=== PATIENT | female | born 1995 | race Caucasian/White ===

== ENCOUNTER 2020-03-16 10:10 | Emergency (ER) | payer SELFPAY ==
[2020-03-16] MEDS ORDERED: ONDANSETRON HCL INJ/PF 4 MG/2 ML SDV IV ONE (10:47)
[2020-03-16] MEDS ORDERED: MORPHINE SULFATE 10 MG/ML INJ IV ONE ×2 (10:48→13:13)
--- NOTE | 2020-03-16 10:48 | ER Document Report ---
ED GI/ - General Chief Complaint: Abdominal Pain Stated Complaint: LOWER ABDOMINAL PAIN/BACK PAIN Time Seen by Provider: 03/16/20 10:20 Primary Care Provider: TORIN HARKINS MD [Primary Care Provider] - Follow up as needed Notes: CHIEF COMPLAINT: Right pelvic pain for 3 days HPI: 24-year-old female with history of ovarian cyst presenting with 3 days of progressively worsening right pelvic pain. Patient is on her menstrual cycle currently denies vaginal discharge. Has had nausea no vomiting no fever. Patient states it feels similar to prior ovarian cyst but the pain is more severe. She has taken no medications at home for the symptoms. ROS: See HPI - all other systems were reviewed and are otherwise negative Constitutional: no fever or recent illness Eyes: no drainage, no blurred vision ENT: no runny nose, no sore throat Cardiovascular: no chest pain Resp: no SOB, no cough GI: no vomiting, no diarrhea, positive pelvic pain : no dysuria, no vaginal discharge Integumentary: no rash Allergy: no hives Musculoskeletal: no extremity pain or swelling Neurological: no numbness/tingling, no weakness MEDICATIONS: I agree with the patient medications as charted by the RN. ALLERGIES: I agree with the allergies as charted by the RN. PAST MEDICAL HISTORY/PAST SURGICAL HISTORY: Reviewed and agree as charted by RN. SOCIAL HISTORY: Reviewed and agree as charted by RN. FAMILY HISTORY: No significant familial comorbid conditions directly related to patient complaint EXAM: Reviewed vital signs as charted by RN. CONSTITUTIONAL: Alert and oriented and responds appropriately to questions. Well-appearing; well-nourished, moderate distress secondary to pain HEAD: Normocephalic; atraumatic EYES: PERRL; Conjunctivae clear, sclerae non-icteric ENT: normal nose; no rhinorrhea; moist mucous membranes; pharynx without lesions noted NECK: Supple without meningismus; non-tender; no cervical lymphadenopathy, no masses CARD: RRR; no murmurs, no clicks, no rubs, no gallops; symmetric distal pulses RESP: Normal chest excursion without splinting or tachypnea; breath sounds clear and equal bilaterally; no wheezes, no rhonchi, no rales, pulse oximetry 98% on room air not hypoxic ABD/GI: Normal bowel sounds; non-distended; soft, moderate tenderness in the right pelvis on palpation, no rebound, no guarding; no palpable organomegaly or masses : Female nurse cash person present. External genitalia normal. No skin lesions noted. Pelvic Exam: scant active bleeding. No purulent discharge. Cervix appears normal. No CMT. No lesions or masses. Uterus normal size and non tender. Right/Left adnexa normal size and mildly tender in the right adnexa. BACK: The back appears normal and is non-tender to palpation, there is no CVA tenderness EXT: Normal ROM in all joints; non-tender to palpation; no cyanosis, no effusions, no edema SKIN: Normal color for age and race; warm; dry; good turgor; no acute lesions noted NEURO: Moves all extremities equally; Motor and sensory function intact PSYCH: The patient's mood and manner are appropriate. Grooming and personal hygiene are appropriate. MDM: 24-year-old female with right pelvic pain over the last 3 days. Will obtain screening labs, test, pelvic exam, initially obtain pelvic ultrasound to evaluate for cyst or torsion TRAVEL OUTSIDE OF THE [place] IN LAST 30 DAYS: No - Related Data Allergies/Adverse Reactions: Pertussis Vaccines Allergy (Verified 03/16/20 10:45) Past Medical History - Social History Smoking Status: Former Smoker Family History: Reviewed & Not Pertinent Patient has suicidal ideation: No Patient has homicidal ideation: No Pulmonary Medical History: Reports: Hx Asthma Renal/ Medical History: Reports: Hx Kidney Stones Past Surgical History: Reports: Hx Tonsillectomy Physical Exam - Vital signs Vitals: Temp Pulse Resp BP Pulse Ox 98.2 F 88 18 128/88 H 100 03/16/20 10:14 03/16/20 10:14 03/16/20 10:14 03/16/20 10:14 03/16/20 10:14 Course - Re-evaluation Re-evalutation: 03/16/20 13:13 Patient's pain is recurred. Her ultrasound does not show any definitive findings in the right pelvis that would explain her pain. No torsion. Given the right lower quadrant pain will obtain CT imaging to rule out appendicitis 03/16/20 14:43 There was not a definitive finding to explain the patient's discomfort her CT was negative, appendix was normal. There was good blood flow to the ovary on ultrasound, unlikely to be torsion. 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 She does have vaginitis. I will place her on Flagyl and a course of pain medication and nausea medication. Was given strict instructions for return including fever uncontrolled or worsening pain. Aware that we do not have a definitive answer for her discomfort at this time although it seems to be more pelvic in nature than intra-abdominal 03/16/20 14:45 Patient does have kidney stone history but states this pain is different - Vital Signs Vital signs: Temp Pulse Resp BP Pulse Ox 98.0 F 68 14 112/78 100 03/16/20 14:03 03/16/20 14:03 03/16/20 14:03 03/16/20 14:03 03/16/20 14:03 - Laboratory Result Diagrams: 03/16/20 11:00 03/16/20 11:00 Laboratory results interpreted by me: 03/16/20 11:00 Chloride 108 H Discharge - Discharge Clinical Impression: Acute pelvic pain, female, Right lower quadrant pain Condition: Stable Disposition: HOME, SELF-CARE Additional Instructions: Medications as prescribed, no driving if taking narcotics for pain. There is not a definitive reason noted for your discomfort today. Your ultrasound did not show acute findings in the right ovary, there was good blood flow, your CT showed a normal appendix. Your lab work was otherwise normal except for noting bacterial vaginitis. Take the Flagyl to treat this. Call your TEASELER tomorrow to schedule close follow-up in the office return for fever or uncontrolled pain Prescriptions: Metronidazole [Flagyl 500 mg Tablet] 500 mg PO BID #14 tablet Hydrocodone/Acetaminophen [[place] 5-325 mg Tablet] 1 tab PO Q4 PRN #15 tablet PRN Reason: Ondansetron [Zofran Odt 4 mg Tablet] 1 - 2 tab PO Q4H PRN #15 tab.rapdis PRN Reason: For Nausea/Vomiting Forms: Return to Work Referrals: TORIN HARKINS MD [Primary Care Provider] - Follow up as needed
[2020-03-16 11:21] LABS: ABSOLUTE BASOPHILS # (AUTO) 0.1 10^3/uL (0.0-0.2); ABSOLUTE EOSINOPHILS # (AUTO) 0.4 10^3/uL (0.0-0.6); ABSOLUTE LYMPHOCYTES (AUTO) 1.8 10^3/uL (0.5-4.7); ABSOLUTE MONOCYTES (AUTO) 0.4 10^3/uL (0.1-1.4); ABSOLUTE NEUT (AUTO) 4.9 10^3/uL (1.7-8.2); BASOPHILS % (AUTO) 1.1 % (0-2); EOSINOPHILS % (AUTO) 4.9 % (0-6); HEMATOCRIT 42.6 % (36.0-47.0); HEMOGLOBIN 14.9 g/dL (12.0-15.5); LYMPHOCYTES % (AUTO) 23.7 % (13-45); MEAN CORPUSCULAR HEMOGLOBIN 30.7 pg (27.0-33.4); MEAN CORPUSCULAR VOLUME 88 fl (80-97); PLATELET COUNT 310 10^3/uL (150-450); RED BLOOD COUNT 4.86 10^6/uL (3.72-5.28); RED CELL DISTRIBUTION WIDTH 13.6 % (11.5-14.0); SEGMENTED NEUTROPHILS % (AUTO) 65.3 % (42-78); TOTAL CELLS COUNTED % (AUTO) 100 %; WHITE BLOOD COUNT 7.5 10^3/uL (4.0-10.5)
[2020-03-16 11:25] LABS: APPEARANCE,URINE SLIGHTLY-CLOUDY; BILIRUBIN,URINE NEGATIVE (NEGATIVE); COLOR,URINE YELLOW; GLUCOSE, URINE NEGATIVE (NEGATIVE); KETONES,URINE NEGATIVE (NEGATIVE); PROTEIN,URINE NEGATIVE (NEGATIVE); UROBILINOGEN,URINE NEGATIVE mg/dL (<2.0)
[2020-03-16 11:46] LABS: ALBUMIN 4.2 g/dL (3.5-5.0); ALKALINE PHOSPHATASE 99 U/L (38-126); ANION GAP 5 (5-19); ASPARTATE AMINO TRANSFERASE 20 U/L (14-36); BILIRUBIN,TOTAL 0.4 mg/dL (0.2-1.3); BLOOD UREA NITROGEN 9 mg/dL (7-20); CALCIUM 9.3 mg/dL (8.4-10.2); CARBON DIOXIDE 26 mmol/L (22-30); CHLORIDE 108 mmol/L (98-107); GLUCOSE 101 mg/dL (75-110); POTASSIUM 4.6 mmol/L (3.6-5.0); TOTAL PROTEIN 7.3 g/dL (6.3-8.2)
[2020-03-16 11:47] LABS: BACTERIA (WET MOUNT) 3+ BACTERIA SEEN; T.VAGINALIS (WET MOUNT) NO TRICHOMONAS SEEN; WBCS (WET MOUNT) RARE WBCS SEEN; YEAST (WET MOUNT) NO YEAST SEEN
--- NOTE | 2020-03-16 12:54 | RADIOLOGY REPORT (SQ) ---
EXAM DESCRIPTION: U/S NON OB PEL W/DOPPLER IMAGES COMPLETED DATE/TIME: 03/16/2020 12:36 pm REASON FOR STUDY: right pelvic pain COMPARISON: None. TECHNIQUE: Dynamic and static grayscale images acquired of the pelvis via transabdominal approach an d recorded on PACS. Additional selected color Doppler and spectral images recorded. LIMITATIONS: None. FINDINGS: UTERUS: The uterus measures 6.5 x 4.3 x 2.9 cm. The echotexture of the myometrium is homo geneous. ENDOMETRIAL STRIPE: The endometrium measures 2.1 mm in thickness. CERVIX: The cervix measures 2.4 cm in length. RIGHT OVARY AND DOPPLER: The right ovary measures 3.1 x 2.4 x 2.5 cm and on Doppler there is intact a rterial inflow and venous outflow within the ovarian stroma. There is no adnexal mass. LEFT OVARY AND DOPPLER: Unable to visualize the left ovary. There is no adnexal mass. FREE FLUID: None noted. OTHER: No other finding. IMPRESSION: 1. Normal appearance of the uterus, endometrium and right ovary. 2. Unable to visualize the left ovary. There is no adnexal mass. TECHNICAL DOCUMENTATION: JOB ID: [id number] 2010 [employer]- All Rights Reserved Rev-04/16 Reading location - IP/workstation name: [email or web address]
[2020-03-16 13:17] LABS: CHLAM PCR NOT DETECTED (NOT DETECT)
--- NOTE | 2020-03-16 14:25 | RADIOLOGY REPORT (SQ) ---
EXAM DESCRIPTION: CT ABD/PELVIS WITH IV ONLY IMAGES COMPLETED DATE/TIME: 03/16/2020 12:57 pm REASON FOR STUDY: RLQ pain COMPARISON: Pelvic ultrasound same date. TECHNIQUE: CT scan of the abdomen and pelvis performed using helical scanning technique with dynamic intravenous contrast injection. No oral contrast. Images reviewed with lung, soft tissue, and bone windows. Reconstructed coronal and sagittal MPR images reviewed. Delayed images for evaluation of the urinary system also acquired. All images stored on PACS. All CT scanners at this facility use dose modulation, iterative reconstruction, and/or weight based d osing when appropriate to reduce radiation dose to as low as reasonably achievable (ALARA). [facility]: Dose Right [facility]: CareDose [facility]: Dose Right [facility]: Teradose 4D [facility]: Netragon CONTRAST TYPE AND DOSE: contrast/concentration: Isovue 350.00 mg/ml; Total Contrast Delivered: 100.0 ml; Total Saline Delivered: 72.0 ml RENAL FUNCTION: None required. The patient is less than 50 years old. RADIATION DOSE: CT Rad equipment meets quality standard of care and radiation dose reduction techniq ues were employed. CTDIvol: 15.0 - 19.2 mGy. DLP: 1899 mGy-cm.. LIMITATIONS: None. FINDINGS: LOWER CHEST: No significant findings. No nodules or infiltrates. LIVER: Mild hepatic steatosis. Normal size. No masses. No dilated ducts. SPLEEN: Normal size. No focal lesions. PANCREAS: No masses. No significant calcifications. No adjacent inflammation or peripancreatic fluid collections. Pancreatic duct not dilated. GALLBLADDER: No identified stones by CT criteria. No inflammatory changes to suggest cholecystitis. ADRENAL GLANDS: No significant masses or asymmetry. RIGHT KIDNEY AND URETER: No solid masses. No significant calcifications. No hydronephrosis or hyd roureter. LEFT KIDNEY AND URETER: No solid masses. No significant calcifications. No hydronephrosis or hydr oureter. AORTA AND VESSELS: No aneurysm. No dissection. Renal arteries, SMA, celiac without stenosis. RETROPERITONEUM: No retroperitoneal adenopathy, hemorrhage or masses. BOWEL AND PERITONEAL CAVITY: No masses or inflammatory changes. No free fluid or peritoneal masses. APPENDIX: Normal. PELVIS: Uterus and ovaries have normal size. No adnexal mass. No free fluid in the pelvic cul-de-sa c. Urinary bladder is unremarkable. Calcified pelvic phleboliths. ABDOMINAL WALL: No masses. No hernias. BONES: No significant or acute findings. OTHER: No other significant finding. IMPRESSION: 1. No CT abnormality to explain the patient's right lower quadrant pain. Appendix is normal. 2. Mild hepatic steatosis. TECHNICAL DOCUMENTATION: JOB ID: [id number] Quality ID # [id number]: Final reports with documentation of one or more dose reduction techniques (e.g., Au tomated exposure control, adjustment of the mA and/or kV according to patient size, use of iterative reconstruction technique) 2010 [employer]- All Rights Reserved Reading location - IP/workstation name: [email or web address]
[2020-03-16] MEDS ORDERED: KETOROLAC TROMETHAMINE INJ/PF 30 MG/1 ML SDV IV ONE (14:32)
[2020-03-16] MEDS ORDERED: METRONIDAZOLE 500 MG TABLET PO ONE (14:47)
[2020-03-16 15:10] VITALS: BP 122/64
== END 2020-03-16 15:08 | disposition home or self-care (01) ==
LOC: ER 10:10
DX: R10.2 Pelvic and perineal pain (principal); R10.31 Right lower quadrant pain; R11.0 Nausea; Z87.891 Personal history of nicotine dependence
CPT/HCPCS: 96376; 99284; 96374; 96375; 36415; 87210; 83690; 85025; 81025; 80053; 81001; 87491; 87591; 76856; 93976; 74177; J1885; J2270; J2405

== ENCOUNTER 2020-03-20 19:23 | Emergency (ER) | payer SELFPAY ==
[2020-03-20] MEDS ORDERED: HYDROMORPHONE HCL INJ/PF 2 MG/ML AMPULE IV ONE (19:47)
[2020-03-20] MEDS ORDERED: METOCLOPRAMIDE HCL INJ/PF 10 MG/2 ML SDV IV ONE (19:47)
[2020-03-20] MEDS ORDERED: KETOROLAC TROMETHAMINE INJ/PF 30 MG/1 ML SDV IV ONE (19:49)
--- NOTE | 2020-03-20 19:51 | ER Document Report ---
ED General - General Chief Complaint: Nausea/Vomiting Stated Complaint: NAUSEA/VOMITING Primary Care Provider: TORIN HARKINS MD [Primary Care Provider] - Follow up as needed Notes: 24-year-old female presents with recurrent right lower abdominal pain. She was seen about a week ago for the same, had a negative CT for appendicitis and ultrasound for torsion during which her left ovary was not visualized but the right was normal. She was given pain medicine her pain was still slightly present on discharge but improved rapidly within a day or 2 on oral pain medicine. She was on Flagyl for BV as well. She says that after feeling better for a few days last night her pain recurred when she went from sitting to standing happened rapidly the right lower quadrant has been intermittent ever since with nausea vomiting and decreased p.o. intake. This is despite the medication she was prescribed. No fever no chills no vaginal bleeding or dis charge no history of STDs. She said she was diagnosed with polycystic ovaries at age 11. Notably her ultrasound and CT on review are in fact normal. She denies urinary symptoms. TRAVEL OUTSIDE OF THE [place] IN LAST 30 DAYS: No - Related Data Allergies/Adverse Reactions: Pertussis Vaccines Allergy (Verified 03/20/20 19:29) Past Medical History - Social History Smoking Status: Former Smoker Family History: Reviewed & Not Pertinent Patient has suicidal ideation: No Patient has homicidal ideation: No Pulmonary Medical History: Reports: Hx Asthma Renal/ Medical History: Reports: Hx Kidney Stones Past Surgical History: Reports: Hx Tonsillectomy Review of Systems - Review of Systems Notes: REVIEW OF SYSTEMS GEN: Denies fever, chills, weight loss ENT: Denies sore throat, nasal discharge, ear pain EYES: Denies blurry vision, eye pain, discharge CV: Denies chest pain, palpitations, edema RESP: Denies cough, shortness of breath, wheezing GI: See HPI MSK: Denies joint pain/swelling, edema, SKIN: Denies rash, skin lesions LYMPH: Denies swollen glands/lymph nodes NEURO: Denies headache, focal weakness or numbness, dizziness PSYCH: Denies depression, suicidal or homicidal ideation PHYSICAL EXAMINATION General: No acute distress, well-nourished Head: Atraumatic, normocephalic ENT: Mouth normal, oropharynx moist, no exudates or tonsillar enlargement Eyes: Conjunctiva normal, pupils equal, lids normal Neck: No JVD, supple, no guarding CVS: Normal rate, regular rhythm, no murmurs Resp: No resp distress, equal and normal breath sounds bilaterally GI: Mild right midabdominal tenderness no tenderness at McBurney's point no Pike sign. Or guarding Ext: No deformities, no edema, normal range of motion in upper and lower ext Back: No CVA or midline TTP Skin: No rash, warm Lymphatic: No lymphadeopathy noted Neuro: Awake, alert. Face symmetric. GCS 15. Physical Exam - Vital signs Vitals: Temp Pulse Resp BP Pulse Ox 98.1 F 73 18 115/76 100 03/20/20 19:28 03/20/20 19:28 03/20/20 19:28 03/20/20 19:28 03/20/20 19:28 Course - Re-evaluation Re-evalutation: 03/20/20 23:50 Recurrent low abdominal pain feels like stomach bug to the patient. No focal tenderness. Reviewed past visit: BV positive otherwise negative pelvic exam and all imaging. Doubt missed torsion missed PID given her exam and labs today think that if her symptoms are controlled she can be discharged safely. She does have some signs of a developing cystitis on her UA, and I will treat her for this. She is able to tolerate p.o. will be discharged with Phenergan and Ceftin. I have discussed with the patient there likely diagnosis, aftercare plan, follow-up plans and my usual and customary return precautions. They verbalized understanding of this. - Vital Signs Vital signs: Temp Pulse Resp BP Pulse Ox 98.3 F 79 15 117/83 99 03/20/20 22:41 03/20/20 22:41 03/20/20 22:41 03/20/20 22:41 03/20/20 22:41 - Laboratory Result Diagrams: 03/20/20 20:20 03/20/20 20:20 Laboratory results interpreted by me: 03/20/20 03/20/20 20:20 22:07 Hgb 15.7 H Eos % (Auto) 7.0 H Urine Ketones TRACE H Ur Leukocyte Esterase TRACE H Discharge - Discharge Clinical Impression: Cystitis with hematuria Abdominal pain Qualifiers: Abdominal location: unspecified location Qualified Code(s): R10.9 - Unspecified abdominal pain Condition: Good Disposition: HOME, SELF-CARE Instructions: Abdominal Pain ([facility]), Urinary Tract Infection ([facility]) Additional Instructions: n oserious cause of abdominal pain found return to ER if any worse Prescriptions: Cefuroxime Axetil [Ceftin 500 mg Tablet] 1 tab PO BID #20 tablet Promethazine HCl [Phenergan 25 mg Supp.rect] 1 supp RI Q6H #12 supp.rect Forms: Return to Work Referrals: TORIN HARKINS MD [Primary Care Provider] - Follow up as needed
[2020-03-20 20:30] LABS: ABSOLUTE BASOPHILS # (AUTO) 0.1 10^3/uL (0.0-0.2); ABSOLUTE EOSINOPHILS # (AUTO) 0.6 10^3/uL (0.0-0.6); ABSOLUTE LYMPHOCYTES (AUTO) 2.6 10^3/uL (0.5-4.7); ABSOLUTE MONOCYTES (AUTO) 0.6 10^3/uL (0.1-1.4); ABSOLUTE NEUT (AUTO) 4.7 10^3/uL (1.7-8.2); BASOPHILS % (AUTO) 1.1 % (0-2); HEMATOCRIT 45.8 % (36.0-47.0); HEMOGLOBIN 15.7 g/dL (12.0-15.5); LYMPHOCYTES % (AUTO) 30.7 % (13-45); MEAN CORPUSCULAR HEMOGLOBIN 30.6 pg (27.0-33.4); MEAN CORPUSCULAR HGB CONC 34.3 g/dL (32.0-36.0); MEAN CORPUSCULAR VOLUME 89 fl (80-97); MONOCYTES % (AUTO) 6.5 % (3-13); PLATELET COUNT 340 10^3/uL (150-450); RED BLOOD COUNT 5.14 10^6/uL (3.72-5.28); RED CELL DISTRIBUTION WIDTH 13.8 % (11.5-14.0); SEGMENTED NEUTROPHILS % (AUTO) 54.7 % (42-78); TOTAL CELLS COUNTED % (AUTO) 100 %; WHITE BLOOD COUNT 8.6 10^3/uL (4.0-10.5)
[2020-03-20 20:46] LABS: ANION GAP 6 (5-19); BLOOD UREA NITROGEN 7 mg/dL (7-20); CALCIUM 9.4 mg/dL (8.4-10.2); CARBON DIOXIDE 28 mmol/L (22-30); CHLORIDE 105 mmol/L (98-107); GLUCOSE 87 mg/dL (75-110); POTASSIUM 4.2 mmol/L (3.6-5.0)
[2020-03-20 22:30] LABS: APPEARANCE,URINE SLIGHTLY-CLOUDY; BILIRUBIN,URINE NEGATIVE (NEGATIVE); COLOR,URINE YELLOW; GLUCOSE, URINE NEGATIVE (NEGATIVE); KETONES,URINE TRACE mg/dL (NEGATIVE); LEUKOCYTE ESTERASE,URINE TRACE (NEGATIVE); NITRITE,URINE NEGATIVE (NEGATIVE); PROTEIN,URINE NEGATIVE (NEGATIVE); URINE SPECIFIC GRAVITY 1.021; UROBILINOGEN,URINE NEGATIVE mg/dL (<2.0)
[2020-03-20 22:41] VITALS: BP 117/83
== END 2020-03-20 22:46 | disposition home or self-care (01) ==
LOC: ER 19:23
DX: N30.91 Cystitis, unspecified with hematuria (principal); R10.9 Unspecified abdominal pain; R11.2 Nausea with vomiting, unspecified; R10.31 Right lower quadrant pain; R63.0 Anorexia; Z87.891 Personal history of nicotine dependence; J45.909 Unspecified asthma, uncomplicated
CPT/HCPCS: 99283; 96374; 96375; 36415; 85025; 81025; 80048; 81001; J1885; J2765; J1170